=== PATIENT | female | born 1960 | race Caucasian/White ===

== ENCOUNTER 2024-01-11 12:54 | Day surgery (SDC) | payer BC ==
[2024-01-11] MEDS ORDERED: Lidocaine 1% PF 5 ML VIAL ONE ×3 (13:35→14:45)
[2024-01-11] MEDS ORDERED: Betamet Acet/Betamet Na Ph 30 MG/5 ML VIAL FS SCH (14:00)
[2024-01-11] MEDS ORDERED: Sodium Bicarbonate 2.5 MEQ/5 ML SDV ONE (14:31)
== END 2024-01-11 15:18 | disposition home or self-care (01) ==
LOC: ULT 12:54
PROVIDERS: ATTEND Orthopaedic Surgery
DX: M75.31 Calcific tendinitis of right shoulder (principal)
CPT/HCPCS: 76942; J0702

== ENCOUNTER 2025-01-23 11:47 | Outpatient (CLI) | payer BC | END 2025-01-23 11:48 | disposition home or self-care (01) | LOC: BICMAMMO 11:47 | PROVIDERS: ATTEND Obstetrics & Gynecology | DX: Z12.31 Encounter for screening mammogram for malignant neoplasm of breast (principal); Z13.820 Encounter for screening for osteoporosis; M85.89 Other specified disorders of bone density and structure, multiple sites; Z80.3 Family history of malignant neoplasm of breast | CPT/HCPCS: 77063; 77067; 77080 ==